=== PATIENT | female | born 1960 | race African-American/Black ===

== ENCOUNTER 2017-01-23 13:47 | Emergency (ER) | payer MEDICAID ==
[~2017-01-23] VITALS: Ht 177.8 cm; Wt 109.0 kg
[~2017-01-23 13:47] MED LIST: AMOX-424 PO; IBUP-1636 PO
[2017-01-23 15:42] LABS: BASOPHILS % 0.6 % (0.0-2.0); EOSINOPHILS % 1.1 % (0.0-5.0); HEMATOCRIT. 39.3 % (36.0-48.0); HEMOGLOBIN. 13.3 g/dL (12.0-16.0); LYMPHOCYTES % 34.6 % (20.0-50.0); MEAN CORPUSCULAR HEMOGLOBIN 31.7 pg (28.0-32.0); MEAN CORPUSCULAR VOLUME 93.9 fL (81.0-99.0); MEAN PLATELET VOLUME 7.2 fl (7.4-10.4); NEUTROPHILS % 55.7 % (40.0-76.0); PLATELET 346 x1000/uL (130-400); RED BLOOD CELL COUNT 4.19 mill/uL (4.2-5.4)
[2017-01-23 15:46] LABS: CHLORIDE 104 mEq/L (98-107)
[2017-01-23 15:51] LABS: CARBON DIOXIDE 26 mEq/L (21-32)
[2017-01-23 15:54] LABS: INR 1.1; PROTHROMBIN TIME 11.3 sec
[2017-01-23 17:10] VITALS: BP 130/74
== END 2017-01-23 17:11 | disposition home or self-care (01) ==
LOC: ER 16:24
DX: R93.8 Abnormal findings on diagnostic imaging of other specified body structures (principal); N95.0 Postmenopausal bleeding; N93.9 Abnormal uterine and vaginal bleeding, unspecified; Z88.6 Allergy status to analgesic agent
CPT/HCPCS: 36415; 76830; 76856; 80048; 85025; 85610; 86850; 86900; 99285

== ENCOUNTER 2018-06-05 09:56 | Emergency (ER) | payer OTHER, MEDICAID ==
[~2018-06-05] VITALS: Ht 180.3 cm; Wt 109.0 kg
[2018-06-05] MEDS ORDERED: ASPIRIN 81MG TABLET PO ONE (16:00)
[2018-06-05 16:48] LABS: CHLORIDE 105 mEq/L (98-107)
[2018-06-05 16:50] LABS: BASOPHILS % 0.7 % (0.0-2.0); EOSINOPHILS % 1.3 % (0.0-5.0); HEMATOCRIT. 41.3 % (36.0-48.0); HEMOGLOBIN. 13.7 g/dL (12.0-16.0); MEAN CORPUSCULAR HEMOGLOBIN 32.6 pg (28.0-32.0); MEAN CORPUSCULAR VOLUME 97.8 fL (81.0-99.0); MEAN PLATELET VOLUME 7.2 fl (7.4-10.4); MONOCYTES % 8.3 % (2.0-8.0); NEUTROPHILS % 51.7 % (40.0-76.0); PLATELET 343 x1000/uL (130-400); RED BLOOD CELL COUNT 4.22 mill/uL (4.2-5.4); RED CELL DISTRIBUTION WIDTH 14.1 % (11.6-14.6)
[2018-06-05] MEDS ORDERED: IBUPROFEN 800MG TABLET PO ONE (18:15)
[2018-06-05 18:24] LABS: CLARITY URINE CLOUDY (CLEAR); COLOR URINE YELLOW (YELLOW); KETONES URINE TRACE (NEGATIVE); LEUKOCYTE ESTERASE URINE NEGATIVE (NEGATIVE); NITRITE URINE POSITIVE (NEGATIVE); OCCULT BLOOD URINE NEGATIVE (NEGATIVE); PROTEIN URINE NEGATIVE (NEGATIVE); SPECIFIC GRAVITY URINE 1.023 (1.005-1.030)
[2018-06-05 20:26] VITALS: BP 140/76
== END 2018-06-05 20:31 | disposition home or self-care (01) ==
LOC: ER 12:46
DX: R07.89 Other chest pain (principal); R20.2 Paresthesia of skin; R20.0 Anesthesia of skin; F17.200 Nicotine dependence, unspecified, uncomplicated; Z88.6 Allergy status to analgesic agent
CPT/HCPCS: 36415; 70551; 71045; 81025; 84484; 93005; 99284

== ENCOUNTER 2019-04-08 16:21 | Inpatient (IN) | payer OTHER ==
[~2019-04-08] VITALS: Ht 177.8 cm; Wt 99.8 kg
[2019-04-08] MEDS ORDERED: LORAZEPAM 0.5MG TABLET PO PRN (18:00)
[2019-04-08] MEDS ORDERED: MAGNESIUM/ALUMINUM HYDROXIDE/SIMETHICONE 30ML UDC PO PRN (18:00)
[2019-04-08] MEDS ORDERED: ONDANSETRON HCL 4MG/2ML INJ IV PRN (18:00)
[2019-04-08] MEDS ORDERED: DOCUSATE SODIUM 100MG CAPSULE PO PRN (18:00)
[2019-04-08] MEDS ORDERED: TRAMADOL 50MG TABLET PO PRN (18:00)
[2019-04-08] MEDS ORDERED: NITROGLYCERIN 0.4MG TABLET SL SL PRN (18:00)
[2019-04-08] MEDS ORDERED: GUAIFENESIN 200MG/10ML SUGAR FREE UDC PO PRN (18:00)
[2019-04-08] MEDS ORDERED: ACETAMINOPHEN 325MG TABLET PO PRN (18:00)
[2019-04-08] MEDS ORDERED: CLONIDINE 0.1MG TABLET PO PRN (18:00)
[2019-04-08] MEDS ORDERED: ZOLPIDEM TARTRATE 5MG TABLET PO PRN (18:00)
[2019-04-08] MEDS ORDERED: IPRATROPIUM/ALBUTEROL 0.5-3(2.5)MG/3ML NEB HHN PRN (18:00)
[2019-04-08] MEDS ORDERED: KETOROLAC 15MG/ML VIAL IV PRN (18:00)
[2019-04-08] MEDS ORDERED: MEROPENEM 1,000 MG in SODIUM CHLORIDE 0.9% 100 ML IV STA (18:34)
[2019-04-08] MEDS ORDERED: SODIUM CHLORIDE 0.9% 1000ML BAG (SEPSIS BOLUS) IV ONE (18:45)
[2019-04-08 19:19] LABS: BASOPHILS % 0.5 % (0.0-2.0); EOSINOPHILS % 1.2 % (0.0-5.0); HEMATOCRIT. 39.4 % (36.0-48.0); HEMOGLOBIN. 13.1 g/dL (12.0-16.0); LYMPHOCYTES % 21.2 % (20.0-50.0); MEAN CORPUSCULAR HEMOGLOBIN 32.5 pg (28.0-32.0); MEAN PLATELET VOLUME 7.1 fl (7.4-10.4); MONOCYTES % 8.6 % (2.0-8.0); NEUTROPHILS % 68.5 % (40.0-76.0); PLATELET 419 x1000/uL (130-400); RED BLOOD CELL COUNT 4.02 mill/uL (4.2-5.4); RED CELL DISTRIBUTION WIDTH 14.6 % (11.6-14.6)
[2019-04-08 19:23] LABS: CHLORIDE 107 mEq/L (98-107)
[2019-04-08 19:57] LABS: CLARITY URINE CLEAR (CLEAR); COLOR URINE YELLOW (YELLOW); KETONES URINE TRACE (NEGATIVE); LEUKOCYTE ESTERASE URINE NEGATIVE (NEGATIVE); NITRITE URINE NEGATIVE (NEGATIVE); OCCULT BLOOD URINE NEGATIVE (NEGATIVE); PH URINE 5.5 (4.5-8.0); PROTEIN URINE NEGATIVE (NEGATIVE); SPECIFIC GRAVITY URINE 1.021 (1.005-1.030)
[2019-04-08] MEDS ORDERED: FAMOTIDINE 20MG TABLET PO SCH (21:00)
[2019-04-08] MEDS ORDERED: ASCORBIC ACID 500 MG TABLET PO SCH (21:00)
[2019-04-08 23:00] VITALS: BP 134/78
[2019-04-08] MEDS: SODIUM CHLORIDE 0.9% 1,000 ML IV SCH (23:45)
[2019-04-08] MEDS: FAMOTIDINE 20MG TABLET PO SCH (23:46)
[2019-04-08] MEDS: ASCORBIC ACID 500 MG TABLET PO SCH (23:46)
[2019-04-09] MEDS: MEROPENEM 1,000 MG in SODIUM CHLORIDE 0.9% 100 ML IV SCH ×3 (02:01→17:57)
[2019-04-09 04:00] VITALS: BP 142/82
[2019-04-09 08:00] VITALS: BP 140/69
[2019-04-09] MEDS: GUAIFENESIN/DM 600MG/30MG ER TAB 12HR PO SCH ×2 (09:17→21:08)
[2019-04-09] MEDS: ASPIRIN 81MG EC TABLET PO SCH (09:17)
[2019-04-09] MEDS: FAMOTIDINE 20MG TABLET PO SCH ×2 (09:18→21:08)
[2019-04-09] MEDS: ZINC SULFATE 220 MG ( 50 ) CAPSULE PO SCH (09:18)
[2019-04-09] MEDS: ENOXAPARIN 30MG/0.3ML SYR SUBCUT SCH ×2 (09:18→21:08)
[2019-04-09] MEDS: ASCORBIC ACID 500 MG TABLET PO SCH ×2 (09:18→21:08)
[2019-04-09 12:00] VITALS: BP 116/71
[2019-04-09] MEDS: SODIUM CHLORIDE 0.9% 1,000 ML IV SCH (12:55)
[2019-04-09 16:00] VITALS: BP 132/71
[2019-04-09 20:00] VITALS: BP 127/80
[2019-04-10] VITALS: BP 129/69
[2019-04-10] MEDS: MEROPENEM 1,000 MG in SODIUM CHLORIDE 0.9% 100 ML IV SCH ×3 (02:14→17:02)
[2019-04-10] MEDS: SODIUM CHLORIDE 0.9% 1,000 ML IV SCH ×2 (02:14→10:35)
[2019-04-10 04:00] VITALS: BP 130/67
[2019-04-10] MEDS: ZINC SULFATE 220 MG ( 50 ) CAPSULE PO SCH (09:05)
[2019-04-10] MEDS: ENOXAPARIN 30MG/0.3ML SYR SUBCUT SCH ×2 (09:05→20:40)
[2019-04-10] MEDS: GUAIFENESIN/DM 600MG/30MG ER TAB 12HR PO SCH ×2 (09:05→20:40)
[2019-04-10] MEDS: FAMOTIDINE 20MG TABLET PO SCH ×2 (09:05→20:40)
[2019-04-10] MEDS: ASCORBIC ACID 500 MG TABLET PO SCH ×2 (09:05→20:40)
[2019-04-10] MEDS: ASPIRIN 81MG EC TABLET PO SCH (09:05)
[2019-04-10 12:00] VITALS: BP 114/64
[2019-04-10 16:00] VITALS: BP 113/48
[2019-04-10 20:00] VITALS: BP 125/68
[2019-04-11] VITALS: BP 121/65
[2019-04-11] MEDS: MEROPENEM 1,000 MG in SODIUM CHLORIDE 0.9% 100 ML IV SCH ×2 (02:14→09:03)
[2019-04-11 04:00] VITALS: BP 119/66
[2019-04-11] MEDS: SODIUM CHLORIDE 0.9% 1,000 ML IV SCH (04:31)
[2019-04-11 08:00] VITALS: BP 121/69
[2019-04-11] MEDS: ZINC SULFATE 220 MG ( 50 ) CAPSULE PO SCH (09:04)
[2019-04-11] MEDS: FAMOTIDINE 20MG TABLET PO SCH (09:04)
[2019-04-11] MEDS: GUAIFENESIN/DM 600MG/30MG ER TAB 12HR PO SCH (09:04)
[2019-04-11] MEDS: ASPIRIN 81MG EC TABLET PO SCH (09:04)
[2019-04-11] MEDS: ENOXAPARIN 30MG/0.3ML SYR SUBCUT SCH (09:04)
[2019-04-11] MEDS: ASCORBIC ACID 500 MG TABLET PO SCH (09:04)
[2019-04-11 11:12] VITALS: BP 121/69
== END 2019-04-11 11:45 | disposition home or self-care (01) | DRG 463 ==
LOC: ER 16:21 → 6WST 17:51 → EDBEDREQ 19:34 → EDBEDREQTM 19:34 → ENRESERV 21:05
PROVIDERS: ADMIT Internal Medicine; ATTEND Internal Medicine
DX: N39.0 Urinary tract infection, site not specified (principal); J18.9 Pneumonia, unspecified organism; B96.20 Unspecified Escherichia coli [E. coli] as the cause of diseases classified elsewhere
CPT/HCPCS: 36415; 71045; 81003; 83605; 93005; 96365; 99285; J1650; J2185; J2405; J7030; J7050

== ENCOUNTER 2022-05-23 09:19 | Emergency (ER) | payer MEDICAID, OTHER ==
[~2022-05-23] VITALS: Ht 172.7 cm; Wt 81.0 kg
[2022-05-23 09:41] VITALS: BP 147/86
== END 2022-05-23 13:07 | disposition left against medical advice (07) ==
LOC: ER 09:19
DX: Z53.21 Procedure and treatment not carried out due to patient leaving prior to being seen by health care provider (principal); I49.9 Cardiac arrhythmia, unspecified
CPT/HCPCS: 93005

== ENCOUNTER 2023-05-14 21:40 | Emergency (ER) | payer MEDICAID, OTHER ==
[2023-05-14 21:47] VITALS: PULSE 123
== END 2023-05-15 00:09 | disposition left against medical advice (07) ==
LOC: ER 21:40
DX: M54.50 Low back pain, unspecified (principal); Z53.21 Procedure and treatment not carried out due to patient leaving prior to being seen by health care provider
CPT/HCPCS: 99281